=== PATIENT | female | born 1985 ===

== ENCOUNTER 2017-07-03 13:52 | Emergency (ER) | payer MEDICAID, OTHER ==
[~2017-07-03] VITALS: Ht 157.5 cm; Wt 54.4 kg
[2017-07-03] MEDS ORDERED: PRENATAL 19 TA1 EAC1 PO (13:58)
[2017-07-03 14:07] VITALS: BP 102/73
--- NOTE | 2017-07-03 14:11 | Emergency Room Report ---
History of Present Illness General Chief Complaint: Female Urogenital Problems Source: Patient Present Illness HPI The patient presents with dysuria. Also she has some suprapubic discomfort. She is on her period at this time. She doesn't believe she's . She's had urinary tract infections before and feels like that. She denies any back pain, fever, chills, nausea, vomiting, diarrhea, extremity pain, headache, rash , vaginal discharge, cough, sore throat. She rates the pain 6/10 mainly with urination. No hematuria. 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 Last Menstrual Period: on period Reviewed Nursing Documentation: PMH: Agreed; PSxH: Agreed Nursing Documentation-PMH Past Medical History: No Stated History Review of Systems All Other Systems: negative except mentioned in HPI Physical Exam Vital Signs Date Time Temp Pulse Resp B/P (MAP) Pulse Ox O2 Delivery O2 Flow Rate FiO2 07/03/17 13:55 97.0 69 16 102/73 97 Room Air 97.0 Sp02 EP Interpretation: reviewed, normal General Appearance: well appearing, no apparent distress Head: normocephalic, atraumatic Eyes: bilateral eye normal inspection, bilateral eye PERRL ENT: hearing grossly normal, normal voice Neck: full range of motion, supple Respiratory: no respiratory distress, speaking full sentences Gastrointestinal: normal inspection, normal bowel sounds Genitourinary: no CVA tenderness Musculoskeletal: no calf tenderness Neurologic: alert, oriented x3, normal gait, grossly normal Psychiatric: mood/affect normal Skin: no rash Medical Decision Making Diagnostic Impression: Primary Impression: UTI (urinary tract infection) Qualified Codes: N30.00 - Acute cystitis without hematuria ER Course Patient presents with dysuria. She's suspicious of possible UTI versus cramps. There is no evidence of pyelonephritis at this time. She will be evaluated with urinalysis and test. The patient declines Tylenol at this time. Urinalysis reveals pyuria. The patient is started on Macrobid. Questions were answered. She is advised to seek follow-up with her own doctor. The patient is stable for outpatient observation and treatment. Laboratory Tests Test 07/03/17 14:03 Urine Color Yellow Urine Appearance Clear Urine pH 5 (4.5-8.0) Urine Specific [place] 1.025 (1.005-1.035) Urine Protein 2+ (NEGATIVE) H Urine Glucose (UA) Negative (NEGATIVE) Urine Ketones Negative (NEGATIVE) Urine Occult Blood 5+ (NEGATIVE) H Urine Nitrite Negative (NEGATIVE) Urine Bilirubin Negative (NEGATIVE) Urine Urobilinogen Normal MG/DL (0.0-1.0) Urine Leukocyte Esterase 3+ (NEGATIVE) H Urine RBC 30-40 /HPF (0 - 2) H Urine WBC 60-80 /HPF (0 - 2) H Urine Squamous Epithelial Cells Few /LPF (NONE/OCC) Urine Bacteria Few /HPF (NONE) Urine HCG, Qualitative Negative (NEGATIVE) Last Vital Signs Date Time Temp Pulse Resp B/P (MAP) Pulse Ox O2 Delivery O2 Flow Rate FiO2 07/03/17 15:00 97.0 65 16 108/69 100 Room Air 97.0 Status: improved Disposition: HOME, SELF-CARE Condition: Improved Scripts Phenazopyridine Hcl* (PYRIDIUM*) 100 Mg Tablet 100 MG ORAL THREE TIMES A DAY PRN for dysuria, #9 TAB Prov: Edgar Gray M.D. 07/03/17 Nitrofurantoin Monohyd/M-Cryst* (MACROBID 100 MG*) 100 Mg Capsule 100 MG ORAL EVERY 12 HOURS, #14 CAP Prov: Edgar Gray M.D. 07/03/17 Edgar Gray M.D. July 03, 2017 14:11
[2017-07-03 14:15] LABS: APPEARANCE,URINE CLEAR; BILIRUBIN, URINE NEGATIVE (NEGATIVE); GLUCOSE, URINE (UA) NEGATIVE (NEGATIVE); KETONES,URINE NEGATIVE (NEGATIVE); LEUKOCYTE ESTERASE ,URINE 3+ (NEGATIVE); NITRITE,URINE NEGATIVE (NEGATIVE); PH,URINE 5 (4.5-8.0); PROTEIN,URINE 2+ (NEGATIVE); UROBILINOGEN,URINE NORMAL MG/DL (0.0-1.0)
[2017-07-03 14:24] LABS: COLOR,URINE YELLOW
[2017-07-03] MEDS ORDERED: NITROFURANTOIN100 M2 ORAL (14:41)
[2017-07-03] MEDS ORDERED: PHENAZOPYRIDIN100 MG ORAL (14:41)
[2017-07-03 15:00] VITALS: BP 108/69
== END 2017-07-03 15:00 | disposition home or self-care (01) ==
LOC: EMR 14:24
DX: N30.00 Acute cystitis without hematuria (principal)
CPT/HCPCS: 81003; 81025; 87086; 87181; 99284